=== PATIENT | male | born 1970 | race Two or more races ===

== ENCOUNTER → 2017-06-12 | Outpatient (CLI) | payer OTHER ==
[2017-06-12 14:45] LABS: BUN 14 mg/dL (7-18)
[2017-06-12 14:57] LABS: GFR (ESTIMATED) 91 ML/MIN (>60)
== END ==
LOC: LAB 08:28
PROVIDERS: Internal Medicine Adolescent Medicine
DX: E78.5 Hyperlipidemia, unspecified (principal)